=== PATIENT | female | born 1985 | race Hispanic/Latino ===

== ENCOUNTER 2024-07-21 05:42 | Inpatient (IN) | payer MEDICAID, OTHER, SELFPAY ==
[2024-07-21] MEDS ORDERED: Carboprost 250 MCG/ML AMP IM PRN (06:16)
[2024-07-21] MEDS ORDERED: Ondansetron PF 4 MG/2 ML Vial IVP PRN ×3 (06:16→11:25)
[2024-07-21] MEDS ORDERED: Misoprostol 200 MCG TAB PR PRN (06:16)
[2024-07-21] MEDS ORDERED: Tranexamic Acid 1,000 MG/10 ML VIAL IVP PRN (06:16)
[2024-07-21] MEDS ORDERED: Diphenoxylate HCl/Atropine Tablet PO PRN (06:16)
[2024-07-21] MEDS ORDERED: hydrALAZINE 20 MG/ML VIAL SLOW IVP PRN ×2 (06:16→11:25)
[2024-07-21] MEDS ORDERED: Docusate 100 MG CAP PO PRN (06:16)
[2024-07-21] MEDS ORDERED: Promethazine HCl 25 MG/ML VIAL IM PRN ×3 (06:16→11:25)
[2024-07-21] MEDS ORDERED: Methylergonovine 0.2 MG/ML VIAL IM PRN (06:16)
[2024-07-21] MEDS ORDERED: Ibuprofen 800 MG TAB PO PRN (06:18)
[2024-07-21] MEDS ORDERED: Lidocaine 1% (PF) 30 ML VIAL SC PRN (06:18)
[2024-07-21] MEDS ORDERED: Lactated Ringer's 1,000 ML IV SCH (06:30)
[2024-07-21] MEDS ORDERED: Oxytocin 30 units/NS 500 ML 500 ML IV SCH (06:30)
[2024-07-21] MEDS ORDERED: Bupivacaine/Epinephrine 0.25% 30 ML VIAL ONE (07:00)
[2024-07-21 07:32] LABS: Hematocrit 34.1 % (34.9-44.5); Hemoglobin 11.9 g/dL (12.0-15.5); Mean Corpuscular HGB CONC 34.9 g/dL (32.0-36.0); Mean Corpuscular Hemoglobin 32.5 pg (27.0-33.0); Mean Corpuscular Volume 93.2 fL (81.6-98.3); RBC Distribution Width 12.5 % (11.5-14.5); Red Blood Cell (RBC) Count 3.66 10x6/uL (3.90-5.03); White Blood Cell (WBC) Count 7.8 10x3/uL (3.5-10.5)
[2024-07-21 07:34] LABS: Mean Platelet Volume 10.7 fL (7.4-10.4); Platelet Count 132 10x3/uL (150-450)
[2024-07-21 08:03] LABS: Syphilis Antibody Nonreactive (Nonreactive); Syphilis Antibody Index 0.08 S/CO (<1.00 Non-Reactive)
[2024-07-21 08:04] LABS: HBsAg Index 0.29 S/CO (0-0.99); HIV (1/2) Antibody/Antigen Non-Reactive (NonReactive); HIV 1/2 INDEX 0.08 S/CO (<1.00); Hep B Surf Ag - L&D Non-Reactive S/CO (NonReactive)
[2024-07-21] MEDS: fentaNYL/Ropivacaine Epidural 100 ML ONE (08:05)
[2024-07-21] MEDS ORDERED: Moisturizing Cream (Eucerin) 113 GM JAR TOP PRN (08:29)
[2024-07-21] MEDS ORDERED: Lactated Ringer's 500 ML IV PRN (08:29)
[2024-07-21] MEDS ORDERED: ePHEDrine Sulfate 50 MG/10 ML VIAL SLOW IVP PRN (08:29)
[2024-07-21] MEDS ORDERED: diphenhydrAMINE 50 MG/ML VIAL IVP PRN (08:29)
[2024-07-21] MEDS ORDERED: Naloxone HCl 0.4 mg/ml Vial IVP PRN ×2 (08:29)
[2024-07-21] MEDS ORDERED: Communication Order-Pharmacy FS SCH (08:30)
[2024-07-21] MEDS ORDERED: fentaNYL 2 mcg/Ropivacaine 0.2% Epidural 100 ML CADD EPIDURAL SCH (08:30)
[2024-07-21] MEDS: Oxytocin 30 units/NS 500 ML 500 ML IV SCH (08:31)
[2024-07-21 09:54] VITALS: BMI 27.8
[2024-07-21] MEDS ORDERED: diphenhydrAMINE 25 MG CAP PO PRN (11:25)
[2024-07-21] MEDS ORDERED: Lanolin Ointment 7 GM TUBE TOP PRN (11:25)
[2024-07-21] MEDS ORDERED: Bisacodyl 10 MG SUPP PR PRN (11:25)
[2024-07-21] MEDS ORDERED: Milk Of Magnesia 30 ML UDCUP PO PRN (11:25)
[2024-07-21] MEDS ORDERED: Benzocaine-Menthol 82.5 ML CAN TOP PRN (11:25)
[2024-07-21] MEDS: Ibuprofen 800 MG TAB PO SCH (14:47)
[2024-07-21] MEDS: Boostrix 0.5 ML (Tdap) VIAL (>/=7 yrs of age) IM ONE (14:54)
[2024-07-21] MEDS: Ferrous Sulfate 325 MG TAB PO SCH (18:34)
[2024-07-21] MEDS: Acetaminophen 325 MG TAB PO PRN (18:35)
[2024-07-21] MEDS: Docusate 100 MG CAP PO SCH (21:44)
[2024-07-22 07:34] VITALS: BP 120/77; TEMP 98.3
[2024-07-22] MEDS ORDERED: HYDROcodone/Acetaminophen 5/325 mg Tablet PO PRN (08:30)
[2024-07-22] MEDS: Prenatal Vitamin 1 TAB PO SCH (09:11)
== END 2024-07-22 16:05 | disposition home or self-care (01) | DRG 807 ==
LOC: CSHLD/OP 05:42 → CSHLD 06:50 → CSHPP 14:47
PROVIDERS: ADMIT Family Medicine; ATTEND Family Medicine
PROC: 10E0XZZ Delivery of Products of Conception, External Approach (ICD-10-PCS; principal; 2024-07-21)
DX: O24.420 Gestational diabetes mellitus in childbirth, diet controlled (principal); Z37.0 Single live birth; Z3A.39 39 weeks gestation of pregnancy; O09.523 Supervision of elderly multigravida, third trimester
CPT/HCPCS: 51702; 85027; 86780; 86850; 86900; 86901; 87340; 87389; 99285; J2590